=== PATIENT | female | born 1990 | race Two or more races ===

== ENCOUNTER 2016-12-20 17:08 | Emergency (ER) | payer SELFPAY ==
[~2016-12-20] VITALS: Ht 152.4 cm; Wt 72.6 kg
[2016-12-20 17:17] VITALS: BP 119/71
== END 2016-12-20 18:42 | disposition home or self-care (01) ==
LOC: ER 17:09
DX: L60.0 Ingrowing nail (principal); L03.032 Cellulitis of left toe
CPT/HCPCS: 11730; A4606; A6253; A6402; J3490; Z7610